=== PATIENT | male | born 1985 | race Caucasian/White ===

== ENCOUNTER 2018-07-17 19:51 | Emergency (ER) | payer OTHER ==
[~2018-07-17] VITALS: Ht 175.2 cm; Wt 104.3 kg
[2018-07-17] MEDS ORDERED: OMNICEF300 MG PO (21:13)
== END 2018-07-17 21:23 | disposition home or self-care (01) ==
LOC: ED 19:51
DX: R03.0 Elevated blood-pressure reading, without diagnosis of hypertension (principal); H66.012 Acute suppurative otitis media with spontaneous rupture of ear drum, left ear; Z88.0 Allergy status to penicillin

== ENCOUNTER 2019-03-20 17:42 | Emergency (ER) | payer OTHER ==
[~2019-03-20] VITALS: Ht 180.3 cm; Wt 108.0 kg
--- NOTE | ~2019-03-20 | EKG ---
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
[~2019-03-20 17:42] MED LIST: OMNICEF300 MG PO
[2019-03-20 18:08] LABS: BASO # 0.1 10*3/uL (0.0-0.1); BASO % 0.6 % (0.0-1.0); EOS # 0.1 10*3/uL (0.0-0.4); EOS % 1.3 % (1.0-4.0); HEMATOCRIT 47.1 % (42.0-52.0); HEMOGLOBIN 15.1 g/dl (14.0-18.0); LYMPH # 2.4 10*3/uL (1.3-4.4); LYMPH % 28.6 % (27.0-41.0); MEAN CELL VOLUME 83.2 fl (80.0-94.0); MEAN CORPUSCULAR HGB 26.7 pg (27.0-31.0); MEAN CORPUSCULAR HGB CONC 32.1 g/dl (33.0-37.0); MEAN PLATELET VOLUME 10.8 fl (9.6-12.3); MONO # 0.5 10*3/uL (0.1-1.0); MONO % 6.1 % (3.0-9.0); NEUT # 5.4 10*3/uL (2.3-7.9); NEUT % 63.3 % (47.0-73.0); PLATELET COUNT AUTOMATED 239 10*3/uL (130-400); RED BLOOD COUNT 5.66 10*6/uL (4.50-5.90); RED CELL DISTRI WIDTH 13.4 % (0-14.5); WHITE BLOOD COUNT 8.5 10*3/uL (4.8-10.8)
[2019-03-20 18:18] LABS: ACT PARTIAL THROMBO TIME 28.2 SECONDS (20.0-32.1)
[2019-03-20 18:23] LABS: ALBUMIN 4.1 gm/dl (3.1-4.5); ALKALINE PHOSPHATASE 85 U/L (45-117); BUN 20 mg/dl (7-24); CHLORIDE 105 mmol/L (98-107); CREATININE 1.13 mg/dL (0.70-1.30); LIPASE 109 U/L (73-393); POTASSIUM 3.4 mmol/L (3.5-5.1); SGOT/AST 48 IU/L (3-35); SGPT/ALT 113 U/L (12-78); SODIUM 139 mmol/L (136-145); TOTAL PROTEIN 7.2 gm/dL (6.4-8.2); TROPONIN I < 0.015 ng/ml (<0.045)
[2019-03-20 19:07] LABS: BILIRUBIN NEGATIVE (NEGATIVE); BLOOD NEGATIVE (NEGATIVE); CLARITY CLEAR (CLEAR); COLOR YELLOW (YELLOW); GLUCOSE NEGATIVE (NEGATIVE); KETONE NEGATIVE (NEGATIVE); LEUKO ESTERASE NEGATIVE (NEGATIVE); NITRITE NEGATIVE (NEGATIVE); PH 5.5 (5.0-9.0); SPECIFIC GRAVITY >= 1.030 (1.005-1.030); UROBILINOGEN 0.2 E.U./dl (0.2-1.0)
[2019-03-20 19:13] LABS: BACTERIA TRACE; EPITHELIAL CELLS 0-2; MUCOUS 1+; RBC 0-2 rbc/hpf (0-2); WBC 0-2 wbc/hpf (0-5)
== END 2019-03-20 20:54 | disposition home or self-care (01) ==
LOC: ED 17:42
PROVIDERS: Physician Assistant
DX: R07.9 Chest pain, unspecified (principal); M79.605 Pain in left leg; R05 Cough; R20.0 Anesthesia of skin; Z88.0 Allergy status to penicillin

== ENCOUNTER → 2019-09-13 | Outpatient (CLI) | payer OTHER | END | disposition home or self-care (01) | LOC: CARD 08-19 14:30 | DX: R42 Dizziness and giddiness (principal) ==

== ENCOUNTER → 2019-09-23 | Outpatient (CLI) | payer OTHER | END | disposition home or self-care (01) | LOC: US 08-19 13:30 | DX: R42 Dizziness and giddiness (principal); I10 Essential (primary) hypertension ==

== ENCOUNTER → 2022-03-18 | Outpatient (CLI) | payer OTHER ==
[2022-03-18 15:22] LABS: HEMATOCRIT 50.3 % (42.0-52.0); MEAN CELL VOLUME 81.8 fl (80.0-94.0); MEAN CORPUSCULAR HGB 26.2 pg (27.0-31.0); MEAN PLATELET VOLUME 10.9 fl (9.6-12.3); RED BLOOD COUNT 6.15 10*6/uL (4.50-5.90); RED CELL DISTRI WIDTH 14.3 % (0-14.5); WHITE BLOOD COUNT 9.5 10*3/uL (4.8-10.8)
[2022-03-18 15:40] LABS: ALKALINE PHOSPHATASE 93 U/L (45-117); BUN 21 mg/dl (7-24); CHLORIDE 109 mmol/L (98-107); CHOLESTEROL 173 mg/dL (<200); CREATININE 1.18 mg/dL (0.70-1.30); LDL CHOLESTEROL 83 mg/dL (9-159); POTASSIUM 4.7 mmol/L (3.5-5.1); SGOT/AST 38 IU/L (3-35); SGPT/ALT 88 U/L (12-78); SODIUM 141 mmol/L (136-145); TOTAL PROTEIN 8.2 gm/dL (6.4-8.2); TRIGLYCERIDES 274 mg/dl (<150)
== END ==
LOC: LAB 15:03
PROVIDERS: ATTEND Physician Assistant
DX: I10 Essential (primary) hypertension (principal); R61 Generalized hyperhidrosis

== ENCOUNTER → 2022-04-15 | Outpatient (CLI) | payer OTHER ==
[2022-04-15 16:40] LABS: IRON 85 ug/dL (65-175)
== END | disposition home or self-care (01) ==
LOC: LAB 15:16
PROVIDERS: ATTEND Physician Assistant
DX: I10 Essential (primary) hypertension (principal); R74.8 Abnormal levels of other serum enzymes

== ENCOUNTER → 2022-06-20 | Outpatient (CLI) | payer OTHER | END | disposition home or self-care (01) | LOC: US 10:30 | PROVIDERS: ATTEND Physician Assistant | DX: K76.0 Fatty (change of) liver, not elsewhere classified (principal); R74.8 Abnormal levels of other serum enzymes ==

== ENCOUNTER → 2022-06-26 | Outpatient (CLI) | payer OTHER | END | disposition home or self-care (01) | LOC: US 08:26 | PROVIDERS: ATTEND Physician Assistant | DX: R61 Generalized hyperhidrosis (principal); R74.8 Abnormal levels of other serum enzymes; I10 Essential (primary) hypertension ==

== ENCOUNTER → 2022-07-05 | Outpatient (CLI) | payer OTHER ==
[2022-07-05 09:19] LABS: ALKALINE PHOSPHATASE 82 U/L (46-116); SGPT/ALT 87 U/L (10-49); TOTAL PROTEIN 7.6 gm/dL (6.0-8.0)
== END | disposition home or self-care (01) ==
LOC: LAB 08:38
PROVIDERS: ATTEND Physician Assistant
DX: I10 Essential (primary) hypertension (principal); R74.8 Abnormal levels of other serum enzymes; R61 Generalized hyperhidrosis

== ENCOUNTER 2023-05-28 20:11 | Emergency (ER) | payer OTHER ==
[~2023-05-28] VITALS: Ht 175.2 cm; Wt 99.8 kg
[2023-05-28] MEDS ORDERED: ANUSOL-HC25 MG R (21:37)
== END 2023-05-28 21:40 | disposition home or self-care (01) ==
LOC: ED 20:11
DX: K64.4 Residual hemorrhoidal skin tags (principal); Z88.0 Allergy status to penicillin